=== PATIENT | female | born 1990 | race Caucasian/White ===

== ENCOUNTER 2016-09-19 10:10 | Observation (INO) ==
[2016-09-19 10:58] LABS: Bilirubin,Urine Negative (Negative); Blood,Urine Negative (Negative); Clarity,Urine Clear (Clear); Color,Urine Yellow (Yellow); Glucose,Urine (UA) Normal (Normal); Ketones,Urine Negative (Negative); Leukocyte Esterase,Urine Negative (Negative); Nitrite,Urine Negative (Negative); PH,Urine 6.5 pH Units (5.0-8.0); Protein,Urine Negative (Neg-Trace); Specific Gravity,Urine 1.005 (1.010-1.025); Urobilinogen,Urine Normal (Normal)
--- NOTE | 2016-09-19 11:10 | Discharge Summary ---
Date of Encounter: 09/19/16 Time of Encounter: 11:05 - Discharge Diagnosis (1) 26 weeks gestation of Priority: Primary Status: Acute Comments: Normal physiologic vaginal discharge. Follow-up outpatient OB scheduled appointment on Monday. - Discharge Medications Home Medications: Naproxen [Naprosyn] 500 mg PO BID PRN #30 tablet 12/18/15 [Rx] Hydrocodone/Acetaminophen [[place] 5-325 Tablet] 1 each PO Q6HR #10 tablet [Rx] Metoclopramide [Reglan] 10 mg PO Q6HR PRN #30 tablet 05/11/16 [Rx] Scopolamine Patch [Transderm-Scop] 1.5 mg TD Q72H #10 patch.td72 05/11/16 [Rx] Allergies/Adverse Reactions: Allergies Penicillins Allergy (Verified 12/21/15 14:10) Rash Data Procedures and tests throughout hospitalization: Laboratory Tests 09/19/16 10:46 Urine Color Yellow Urine Clarity Clear Urine pH 6.5 Ur Specific [place] 1.005 L Urine Protein Negative Urine Glucose (UA) Normal Urine Ketones Negative Urine Blood Negative Urine Nitrite Negative Urine Bilirubin Negative Urine Urobilinogen Normal Ur Leukocyte Esterase Negative Ur Culture Indicated? NO Labs on day of discharge: Labs from last 24 hours 09/19/16 10:46 Urine Color Yellow Urine Clarity Clear Urine pH 6.5 Ur Specific [place] 1.005 L Urine Protein Negative Urine Glucose (UA) Normal Urine Ketones Negative Urine Blood Negative Urine Nitrite Negative Urine Bilirubin Negative Urine Urobilinogen Normal Ur Leukocyte Esterase Negative Ur Culture Indicated? NO - Impressions Patient is 26 weeks and 5 days, presenting for possible rupture of membranes. She states on Monday she felt like she had a rupture of her membranes. She has an appointment with Dr. Monreal on Monday that she was planning on going to. However today during school she noticed that she had some more discharge in her underwear. It is a clear white in color. She has no urinary symptoms. She denies any vaginal itching or burning. She is concerned because she had a previous spontaneous rupture of membranes early with her prior . Nitrazine test was negative. She does have normal physiological vaginal discharge. Ferning was negative. There was no pooled fluid in her vaginal vault. Discussed with patient follow-up with Dr. Monreal on Monday and we would inform her by phone if she does have a UTI. She voiced understanding. Date of admission: 09/19/16 10:10 Primary care physician: Jaki Esquivel CNP - Patient Status Disposition: Home, Self-Care Condition: Good Overall status at discharge: patient is back to baseline - Discharge Instructions Follow Up With: Jaki Esquivel CNP [Primary Care Provider] - - Diet and Activity Activity: increase activity as tolerated Diet: advance to your usual diet Hospital Course SLEEPING [facility] Time Attestation: Total time spent providing and/or coordinating discharge services: Exam - Constitutional General appearance IM: A&O X 3, pleasant, no acute distress, answers questions appropriately - Respiratory Respiratory exam: Present: CTAB - Cardiovascular Cardiovascular exam IM: Present: RRR - GI/Abdominal GI/Abdominal exam IM: normal bowel sounds - Uterine Tone: Firm - Extremities Exam Extremities exam IM: Present: full ROM, normal capillary refill, normal inspection, radial pulses palpable and symetrical - Neurological Exam Neurological exam: alert, oriented X3 - Skin Additional comments: No rashes noted. - VTE Reasons for not Prescribing Prophylaxis: Treatment not Indicated - Low risk for VTE
== END 2016-09-19 11:16 | disposition home or self-care (01) ==
LOC: 1NENULAB
PROVIDERS: ADMIT Obstetrics & Gynecology; ATTEND Obstetrics & Gynecology

== ENCOUNTER 2016-10-17 19:39 | Observation (INO) ==
--- NOTE | 2016-10-17 21:02 | OB/GYN Progress Note ---
Date of Encounter: 10/17/16 Time of Encounter: 21:00 - Assessment and Plan (1) and not yet delivered in third trimester Current Visit: Yes Status: Acute (2) 30 weeks gestation of Current Visit: Yes Status: Acute (3) Previous section complicating Current Visit: Yes Status: Acute (4) Positive fibronectin at 22 weeks to 34 weeks gestation Current Visit: Yes Status: Acute Patient monitored for over an hour no contractions seen good movement noted. (5) Vaginal pain Current Visit: Yes Status: Acute Subjective - Subjective Interval history: Patient is a 26-year-old 2 para 1 at 30-1/7 weeks he was instructed to come to labor and delivery secondary to a positive fibronectin she had in the office today. Patient had been complaining of a lot of abdominal pressure pain with ambulation dysuria and rectal discomfort. fibronectin was obtained before leaving the office. The results were called to the physician which was positive and she wanted the patient to come in to be monitored and possible tocolytic therapy possible steroids. Patient states the baby stops moving and she just has not felt the same for the past couple days. Patient is feeling a little bit nauseated and lightheaded offered an IV the patient refused stating she does not like needles. She has Zofran at home. Patient did have a pelvic exam and the office and she was closed thickened and high. She did not want to be checked here on labor and delivery if she was not doing anything. Patient had no contractions at the over 1 hour monitoring that we performed she did have a urinalysis in the office which was also sent to the lab those results pending at this time. I did review her operative chart she did have a little microscopic hematuria but everything else was negative and no antibiotics were started. Did advise her that if she cultures had a positive an antibiotic will be called in for her. She does not complain of any vaginal discharge and has not had recent intercourse. At this point I see no indication that she is in labor and no need for steroids at this time tocolytic management. She is a previous section for breech presentation however with that she did dilate to 7 cm before they could get the section performed. Did inform her we would know if she was in labor by cervical change and nothing has been documented. Patient is wanting to go home and we will discharge home and discuss with her primary OB out of possible cervical length ultrasound for reassurance. Objective - Vital Signs Vital Signs: Intake and Output 10/17/16 10/17/16 10/17/16 07:59 15:59 23:59 Other: Weight 99 kg Patient Weight 10/17/16 23:59 Weight 99 kg - Exam FHR: category 1 FHR comments: FHT's 140's reactive contractions not seen Auscultation: bilateral: normal Abdomen: Present: normal appearance, soft, gravid Uterus: Present: firm Cervical dilation: deferred
== END 2016-10-17 21:03 | disposition home or self-care (01) ==
LOC: 1NENULAB
PROVIDERS: ADMIT Obstetrics & Gynecology; ATTEND Obstetrics & Gynecology

== ENCOUNTER → 2016-11-30 09:45 | Observation (INO) ==
--- NOTE | 2016-11-30 08:38 | OB/GYN History & Physical ---
Date of Encounter: 11/30/16 Time of Encounter: 08:32 Assessment and Plan (1) 36 weeks gestation of Current visit: Yes Status: Acute Receives care (2) Hypertension affecting in third trimester Current visit: Yes Status: Acute PIH evaluation today (3) Headache in , antepartum Current visit: Yes Status: Acute Not releived with tylenol. PIH evaluation Qualifiers: Trimester: third trimester Qualified Code(s): O26.893 - Other specified related conditions, third trimester; R51 - Headache History of Present Illness Chief complaint: and elevated BP HPI: Ms. Richardson is a 26 year old female at 36w3d to L+D for evaluation of SHANKAR, swelling, increased BP and cramping. No relief with Tylenol. ome with pulse of 119. BPs 150s/90s at hNo spotting, bleeding or LOF. +FM. Her has been complicated by a previous c/s for breech presentation, and severe sciatica third trimester Past Med Surg Social Fam HX - Past Medical History Source: patient, old records reviewed Medical history: no medical history Psychiatric history: no psych history - Past Surgical History Surgical History: - Social History Smoking Status: Never smoker Smokeless Tobacco Status: No Alcohol use: none, rarely Drug use: none - Family History Mother Adopted: No Living Status: Still Living Hx Family Cardiac Disorders: No Hx Family Respiratory Disorders: No Hx Family Cancer: No Hx Family GI Disorders: No Hx Family Endocrine Disorder: No Hx Family Neuromuscular Disorders: No Hx Family Neurologic Disorders: No Hx Family HEENT Disorders: No Hx Family Autoimmune Disorders: No Obstetrical History - Pregnancies : 2 Term: 1 Livin Medications and Allergies Ferrous Sulfate 10/17/16 [History] Tablet 10/17/16 [History] Allergies Penicillins Allergy (Verified 12/21/15 14:10) Rash Review of System OB All systems PM: reviewed and no additional remarkable complaints except as stated - Constitutional Constitutional ROS IM: headache(s), malaise, weight gain, other (Decreased appetite) - Cardiovascular Cardiovascular: rapid heart rate - Gastrointestinal Gastrointestinal: cramping - Muscloskeletal Musculoskeletal: back pain Musculoskeletal: bilateral: hip pain - Integumentary Integumentary: swelling - Neurological Nerological: headache(s) - Psychiatric Psychiatric: anxiety, change in appetite Exam - Vital Signs Vital signs: Afebrile, VSS - Constitutional Constitutional: well developed, well nourished, mild distress - HEENT HEENT: Normocephaly, Mucus Membranes Moist - Neck Neck exam: normal inspection, supple - Lungs Respiratory exam: CTAB - Cardiovascular Cardiovascular exam: RRR, tachycardia (borderlin) - Abdomen Abdomen: Present: bowel sounds normal, gravid, non tender - Extremities Extremities exam: pedal edema, warm - Vulva Vulva: bilateral: normal - Vagina Vagina: Present: normal moisture - Cervix Dilation: 1 Effacement: 50 Station: -2 - Anus/Rectum Anus/Rectum: Present: normal perianal skin Results All other labs normal. - VTE Reasons for not Prescribing Prophylaxis: Treatment not Indicated - Low risk for VTE
[2016-11-30 08:46] LABS: Basophils % 0.3 %; Eosinophils % 0.3 %; Hematocrit 33.7 % (35.3-44.9); Hemoglobin 11.5 g/dL (11.5-15.4); Immature Granulocytes % 1.1 % (0-4); Lymphocytes # 1.4 K/mcL (0.6-4.6); Lymphocytes % 12.1 %; Mean Corpuscular HGB Conc 34.1 g/dL (31.6-35.5); Mean Corpuscular Hemoglobin 30.3 pg (28.0-33.3); Mean Corpuscular Volume 88.7 fL (83.0-100.0); Mean Platelet Volume 10.5 fL (9.4-12.4); Monocytes # 0.8 K/mcL (0.0-1.3); Monocytes % 7.3 %; Neutrophils # 9.1 K/mcL (1.6-8.9); Platelet Count 200 K/mcL (140-400); Red Cell Distribution Width 12.8 % (11.5-14.5); Segmented Neutrophils % 78.9 %
[2016-11-30 08:55] LABS: Protein/Creatinine Ratio,Urine 0.16 mg/mg (0-0.20)
[2016-11-30 09:00] LABS: Alanine Aminotransferase 12 Units/L (0-55); Aspartate Amino Transferase 15 Units/L (5-34); BUN/Creatinine Ratio 15 (6-26); Blood Urea Nitrogen 8 mg/dL (7-20); Lactate Dehydrogenase 150 Units/L (159-327); Uric Acid 3.6 mg/dL (2.6-6.0); eGFR For African Americans > 60 (> 60); eGFR For Non-African Americans > 60 (> 60)
--- NOTE | 2016-11-30 09:25 | Discharge Summary ---
Outpatient Proc Discharge Plan - Plan Additional Instructions: [facility] warnings Home Medications: Ferrous Sulfate 324 mg PO DAILY 10/17/16 [History] Tablet 1 tab DAILY 10/17/16 [History]
== END | disposition home or self-care (01) ==
LOC: 1NENULAB
PROVIDERS: ADMIT Advanced Practice Midwife; ATTEND Obstetrics & Gynecology

== ENCOUNTER 2016-12-14 08:37 | Inpatient (IN) ==
[2016-12-14 09:17] LABS: Basophils % 0.3 %; Eosinophils % 0.3 %; Hemoglobin 11.6 g/dL (11.5-15.4); Immature Granulocytes % 1.2 % (0-4); Lymphocytes # 1.8 K/mcL (0.6-4.6); Lymphocytes % 14.5 %; Mean Corpuscular HGB Conc 34.1 g/dL (31.6-35.5); Mean Corpuscular Hemoglobin 29.6 pg (28.0-33.3); Mean Corpuscular Volume 86.7 fL (83.0-100.0); Mean Platelet Volume 10.6 fL (9.4-12.4); Monocytes % 7.7 %; Neutrophils # 9.6 K/mcL (1.6-8.9); Platelet Count 198 K/mcL (140-400); Red Blood Count 3.92 M/mcL (3.82-4.97); Red Cell Distribution Width 12.9 % (11.5-14.5)
[2016-12-14 09:30] LABS: Alanine Aminotransferase 12 Units/L (0-55); Aspartate Amino Transferase 18 Units/L (5-34); BUN/Creatinine Ratio 12 (6-26); Blood Urea Nitrogen 7 mg/dL (7-20); Lactate Dehydrogenase 184 Units/L (159-327); Uric Acid 3.7 mg/dL (2.6-6.0); eGFR For African Americans > 60 (> 60); eGFR For Non-African Americans > 60 (> 60)
[2016-12-14 10:23] LABS: Protein/Creatinine Ratio,Urine 0.2 mg/mg (0-0.20)
[2016-12-14] MEDS ORDERED: Ringers Solution, Lactated 1,000 ML ONE (10:30)
[2016-12-14] MEDS ORDERED: Oxytocin 20 units/ LR 1000 mL 20 UNIT/1,000 ML BAG IVC ONE ×2 (10:38→17:04)
[2016-12-14] MEDS ORDERED: Metoclopramide 10 MG/2 ML VIAL IVP ONE (10:38)
[2016-12-14] MEDS ORDERED: Famotidine 20 MG/2 ML VIAL IVP ONE (10:38)
[2016-12-14] MEDS ORDERED: Ringers Solution, Lactated 1,000 ML IVC ONE (10:38)
[2016-12-14] MEDS ORDERED: Ondansetron 4 MG/2 ML VIAL IVP ONE ×2 (10:41→14:59)
[2016-12-14] MEDS ORDERED: Ringers Solution, Lactated 1,000 ML IVC SCH (10:45)
[2016-12-14] MEDS ORDERED: Ondansetron 4 MG/2 ML VIAL ONE (10:48)
--- NOTE | 2016-12-14 12:08 | OB/GYN History & Physical ---
Date of Encounter: 12/14/16 Time of Encounter: 12:06 Assessment and Plan (1) 38 weeks gestation of Current visit: Yes Status: Acute (2) Nausea and vomiting during Current visit: Yes Status: Acute IV hydration, Zofran (3) Oligohydramnios in castillo in third trimester Current visit: Yes Status: Acute Patient is 38 weeks and will need delivery (4) Edema of lower extremity in third trimester, antepartum Current visit: Yes Status: Acute (5) Previous section complicating Current visit: No Status: Acute Repeat planned, currently jonathan with cervical change documented History of Present Illness Chief complaint: Decreased movement, headache, BV, N+V, 38 weeks HPI: Ms. Richardson is a 26 year old female with an EDC of 12/25/16 by LMP and confirmed by a 9 week ultrasound. She has a scheduled repeat on 12/21 and presents today with complaints of decreased movement since yesterday evening, nausea or vomiting this morning and woke up with headache, seeing spots. She denies midepigastric pain but has right upper quadrant discomfort and burning sensation. She reports irregular contractions and felt like she was wetter than usual when she woke up. She has had increasing swelling in her lower extremities and feet to the point of discomfort and unable to use her normal shoes. She has had to leave her rings off. Her has been complicated by bilateral sciatica, anemia and anxiety. Upon arrival the patient was tachycardic. She appeared anxious and since arrival has had 2 episodes of emesis. The patient has had plans for tubal ligation at time of her but is now not sure she really wants this done and so is now planning on not having a tubal ligation. Past Med Surg Social Fam HX - Past Medical History Attestation: Yes The following information was validated with the patient. Source: patient, old records reviewed Medical history: GERD Psychiatric history: anxiety - Past Surgical History Surgical History: - Social History Smoking Status: Never smoker Smokeless Tobacco Status: No Alcohol use: none, rarely Drug use: none Occupational status: employed Current living situation: Home - Independent Activity Level: Independent ambulation Recent Out of Country Travel Within the Last 8 Weeks: No Exposure or Possible Exposure to Illness During Travel: No - Family History Mother Adopted: No Living Status: Still Living Hx Family Cardiac Disorders: No Hx Family Respiratory Disorders: No Hx Family Cancer: No Hx Family GI Disorders: No Hx Family Genitourinary Disorders: No Hx Family Endocrine Disorder: No Hx Family Musculoskeletal Disorders: No Hx Family Neuromuscular Disorders: No Hx Family Neurologic Disorders: No Hx Family HEENT Disorders: No Hx Family Autoimmune Disorders: No Hx Family Reproductive Disorders: No Hx Family Psychosocial Disorders: No Hx Family Medical Disorders: No Obstetrical History - Pregnancies : 2 Term: 1 Livin Medications and Allergies Ferrous Sulfate 324 mg PO DAILY 10/17/16 [History] Tablet 1 tab DAILY 10/17/16 [History] Allergies Penicillins Allergy (Verified 12/21/15 14:10) Rash Review of System OB All systems PM: reviewed and no additional remarkable complaints except as stated - Constitutional Constitutional ROS IM: as per HPI, fatigue, headache(s), weight gain - Eyes Eyes: bilateral: blurred vision - Cardiovascular Cardiovascular: edema, leg edema, pedal edema, rapid heart rate - Gastrointestinal Gastrointestinal: cramping, heartburn, nausea, vomiting - Genitourinary Genitourinary: vaginal discharge - Menstruation Menstruation: amenorrhea - Muscloskeletal Musculoskeletal: bilateral: ankle swelling, foot swelling, hand swelling - Neurological Nerological: as per HPI, headache(s), other visual disturbances - Psychiatric Psychiatric: as per HPI, abnormal sleep pattern, anxiety - Endocrine Endocrine: flushing Exam - Vital Signs Vital signs: Afeb, bps 120-140s/ 70-80s, [id number] - Constitutional Constitutional: well developed, well nourished, moderate distress - HEENT HEENT: Normocephaly, Mucus Membranes Moist - Neck Neck exam: normal inspection, supple - Lungs Respiratory exam: CTAB - Cardiovascular Cardiovascular exam: tachycardia - Abdomen Abdomen: Present: bowel sounds normal, gravid Abdomen detail: right upper quadrant: tenderness (No peritoneal signs) - Extremities Extremities exam: pedal edema, warm Deep Tendon Reflex Grade: 3+ Normal But Brisk - Vulva Vulva: bilateral: normal - Vagina Vagina: Present: normal moisture (NTZ negative) - Cervix Dilation: 1 Effacement: 70 Station: -1 - Anus/Rectum Anus/Rectum: Present: normal perianal skin - Comments Comments: Bedside ultrasound reveals a active vertex fetus with grade 3 placenta and JUWAN of 5.1 Results Result Diagrams: 12/14/16 09:05 12/14/16 09:05 Abnormal lab results WBC 12.6 K/mcL (4.3-11.1) H 12/14/16 09:05 Hct 34.0 % (35.3-44.9) L 12/14/16 09:05 Neutrophils # 9.6 K/mcL (1.6-8.9) H 12/14/16 09:05 Urine Total Protein 27 mg/dL (1-14) H 12/14/16 09:56 All other labs normal. - VTE Documentation of Mechanical Device: Intermittent pneumatic compression device
[2016-12-14] MEDS ORDERED: Clindamycin 900 MG/50 ML 900 MG/50 ML IV.SOLN IVPB ONE (13:18)
--- NOTE | 2016-12-14 13:18 | Anesthesia Evaluation PreOp ---
Date of Encounter: 12/14/16 Time of Encounter: 13:16 - Past History Planned Operation: Repeat Cardiac History: Denies any Significant Hx Pulmonary History: Denies Any Significant HX HYDRAULIC PRESS TENDER History: Denies Any Significant HX, Other ("High Anxiety" previously maintained on Prozac. Sciatica, Lumbago) Other Medical History: Denies Any Significant HX, GERD (maintained on Zantac) Anesthesia History: No Prior Anesthetic Complications, Past Anesthesia (C- section 2013,) Alcohol Use: none, rarely Drug use: none Medications and Allergies Ferrous Sulfate 324 mg PO DAILY 10/17/16 [History] Tablet 1 tab DAILY 10/17/16 [History] Allergies Penicillins Allergy (Verified 12/21/15 14:10) Rash - Meds/Allergy Pre-op Review Medications Reviewed: Yes Allergies Reviewed: Yes Beta Blockers on Current Med List: No Anesthesia Results - Labs 12/14/16 09:05 12/14/16 09:05 Laboratory Tests 12/14/16 12/14/16 09:05 09:05 WBC 12.6 H Hgb 11.6 Hct 34.0 L Plt Count 198 BUN 7 Creatinine 0.60 Est GFR (Non-Af Amer) > 60 Anesthesia Exam Intake and Output 12/13/16 12/14/16 12/14/16 23:59 07:59 15:59 Other: Weight 107.1 kg Patient Weight 12/14/16 23:59 Weight 107.1 kg Height: 5' Weight: 236# BMI = 46 NPO (# of Hours): MNOc - HEENT Pupil (Motor): Pupils equal, EOMI Mallampati: II Teeth: Normal Oral Opening: Greater than 3 - HYDRAULIC PRESS TENDER LOC: Oriented HYDRAULIC PRESS TENDER Motor: Normal RUE, Normal LUE, Normal RLE, Normal LLE, Normal Face HYDRAULIC PRESS TENDER Sensory: Normal: RUE, LUE, RLE, LLE, Face - Cardiac Rhythm: Regular Murmur: None - Pulmonary Breath Sounds: bilateral Clear Respiratory Effort: Symmetrical Anesthesia Assess/Plan ASA Score: 2 Modified Stephen Scale for Level of Consciousness: Cooperative, oriented, and tranquil Anesthetic Plan: Regional Monitoring Plan: Standard Monitors Recovery Plan: PACU Anes Supervising Prov Stmt: Pt seen/evaluated, R&B discussed, questions answered and consent obtained. Keith Monsalve MD
[2016-12-14] MEDS ORDERED: EPHEDrine 50 MG/ML VIAL ONE (13:24)
[2016-12-14] MEDS ORDERED: *HR* Oxytocin 10 UNIT/ML VIAL IM ONE (13:26)
[2016-12-14] MEDS ORDERED: *HR* Morphine 2 MG/ML SYRINGE IVP PRN (13:39)
[2016-12-14] MEDS ORDERED: *HR* OxyCODONE/APAP 5/325 TABLET PO PRN (13:39)
[2016-12-14] MEDS ORDERED: Naloxone 0.4 MG/ML INJ IVP PRN (13:39)
[2016-12-14] MEDS ORDERED: Ibuprofen 400 MG TABLET PO PRN (13:39)
[2016-12-14] MEDS ORDERED: *HR* HYDROmorphone (PF) 1 MG/ML SYRINGE IVP PRN ×2 (13:39→14:59)
[2016-12-14] MEDS ORDERED: *HR* Morphine Sulfate/PF 5 MG/10 ML AMPUL ONE (14:06)
[2016-12-14] MEDS ORDERED: *HR* Promethazine 25 MG/ML VIAL IVP PRN (14:59)
--- NOTE | 2016-12-14 16:52 | OB/GYN Procedure Note ---
Section - Date of procedure: 12/14/16 Preop diagnosis: desires repeat (jonathan with cervical change), other (Oligohydramnios) Post-op diagnosis: same Procedure: section, repeat low transverse Surgeon: Melvina Monreal Estimated blood loss (cc): 500 Anesthesiologist: Katharine England [facility] Worker: Tyson Valenzuela Anesthesia Type: Spinal section complications: none Disposition: L&D Recovery Room Specimens: Placenta, Cord segment, Cord blood - (s) A Delivery Date: 12/14/16 Infant Delivery Time: 14:51 Presentation: vertex Position: FLORIAN Route of delivery: other Gender: Female Viability: Viable Pounds: 8 Ounces: 7 Gram Weight: 3.83 kg at 1 minute: 9 at 5 minutes: 9 Shoulder Dystocia: not encountered Specimens collected: cord blood Placenta: spontaneous, uterine exploration Cord: 3 umbilical vessels, other (Arm around shoulder) - Narrative Narrative: The patient was taken to the operating room and given spinal anesthesia adequate for abdominal and pelvic surgery. She was prepped and draped in the usual sterile fashion. Timeout was completed. A Pfannenstiel skin incision was made above and below the previous scar and the cicatrix was excised and discarded. The subcutaneous tissue was sharply dissected down to the fascia. The fascia was incised in the midline and extended bilaterally with Alvarez scissors.. 2 straight [place] clamps were placed on the inferior fascial edge and the fascia was bluntly and sharply dissected away from the rectus muscles. This was repeated superiorly. The rectus muscles were bluntly bissected. Peritoneum was sharply entered and then extended superiorly and inferiorly confirming there were no anterior adhesions. Just above the incision there was a band of omental tissue adhered anteriorly. This was released with the Bovie. Good hemostasis assured. Bladder blade was placed to protect the bladder. There appeared to be a 2 cm window ballooning in the midline in the lower uterine segment which was still intact. Vesicouterine peritoneum was incised and reflected inferiorly and the bladder blade was replaced to protect the bladder. A low transverse incision was then made through the lower uterine segment down to the amnion. This was bluntly extended bilaterally and extended in a U fashion with bandage scissors.. The amnion was bluntly entered. Clear fluid was seen. This was followed by the vertex delivery of a viable and vigorous female infant weighing 8#7 oz with Apgars of 9 at 1 minute and 9 at 5 minutes. was placed on the maternal abdomen. The cord was clamped and cut after a delay. Infant was handed to the nursery care team. Cord blood was obtained. The placenta was delivered spontaneous and intact. The uterine cavity was digitally palpated and wiped clean with a moist lap sponge. There were no placental remnants identified. A ring forcep was used to make sure the cervix was dilated and then this was discarded off the field. Clamps were placed on the uterine angles and the uterine incision was closed using 0 Vicryl suture in a running, locking fashion. A second imbricating layer completed the uterine closure with 0 Vicryl suture. A midline [id number] suture with 0 Vicryl suture was placed for hemostasis. The uterus was then examined and noted to be hemostatic. The pelvis was then irrigated with a copious amount of sterile water. Again, good hemostasis was identified. Tubes and ovaries were inspected and noted to be grossly normal. The peritoneal edges and rectus muscles were then examined and hemostasis achieved. The fascia was then closed using 0 PDS loop in a running nonlocking fashion. Subcutaneous tissue was irrigated with sterile water, good hemostasis was achieved. This layer was then reapproximated with 3-0 Monocryl in a running nonlocking fashion. The skin was then closed using a 4-0 Monocryl in a running subcuticular fashion. The incision was then reinforced with benzoin and Steri-Strips. Good hemostasis was noted. Estimated blood loss was 500cc. The Jaffe was noted to be draining clear yellow urine at the end of the procedure. All sponge and instrument counts are correct at the end of the procedure. The patient was taken to the recovery room in stable condition.
[2016-12-14] MEDS ORDERED: Metoclopramide 10 MG/2 ML VIAL IVP PRN (18:14)
[2016-12-14] MEDS ORDERED: Rho Immune Globulin 1,500 UNIT SYRINGE IM ONE (18:14)
[2016-12-14] MEDS ORDERED: Ondansetron 4 MG/2 ML VIAL IVP PRN (18:14)
[2016-12-14] MEDS ORDERED: Sennosides 8.6 MG TABLET PO PRN (18:14)
[2016-12-14] MEDS ORDERED: Oxytocin 20 units/ LR 1000 mL 20 UNIT/1,000 ML BAG IVC SCH ×2 (18:14)
[2016-12-14] MEDS ORDERED: Simethicone 80 MG TAB.CHEW PO PRN (18:14)
--- NOTE | 2016-12-14 18:40 | Anesthesia Evaluation Post Op ---
Date of Encounter: 12/14/16 Time of Encounter: 18:00 - Vital Signs Vital Signs: 3 Vital Signs Time 1800 BP 119/71 Pulse 92 Resp 16 O2 Sat 99 RA - Lungs Lungs: Clear Ascult./Percussion - Airway Airway: Non-obstructed - Cardiovascular Regular Rate - Mental Status Mental Status: Alert & Oriented, Answers Appropriately - Pain Pain Scale: 2 Pain Scale used: Numeric (1 - 10) - Nausea Vomiting Nausea Vomiting: Not Present - Hydration Hydration: NPO, Jaffe catheter Notes: 12/14/16 18:39 patient able to move legs blaterally - Discharge PostOp Status: Transfer Patient to floor
[2016-12-14] MEDS: Ibuprofen 600 MG TABLET PO PRN (21:29)
[2016-12-15 06:32] LABS: Basophils % 0.3 %; Eosinophils % 0.3 %; Hematocrit 34.1 % (35.3-44.9); Hemoglobin 11.5 g/dL (11.5-15.4); Lymphocytes # 1.1 K/mcL (0.6-4.6); Lymphocytes % 8.3 %; Mean Corpuscular HGB Conc 33.7 g/dL (31.6-35.5); Mean Platelet Volume 11.1 fL (9.4-12.4); Monocytes # 1.1 K/mcL (0.0-1.3); Monocytes % 7.7 %; Neutrophils # 11.2 K/mcL (1.6-8.9); Platelet Count 188 K/mcL (140-400); Red Blood Count 3.83 M/mcL (3.82-4.97); Red Cell Distribution Width 12.9 % (11.5-14.5); Segmented Neutrophils % 82.4 %
[2016-12-15] MEDS: Ibuprofen 600 MG TABLET PO PRN ×3 (06:35→20:42)
[2016-12-15] MEDS ORDERED: *HR* Phenylephrine 10 MG/ML VIAL ONE (06:53)
--- NOTE | 2016-12-15 08:52 | OB/GYN Progress Note ---
Date of Encounter: 12/15/16 Time of Encounter: 08:50 - Assessment and Plan (1) delivery delivered Current Visit: Yes Status: Acute Stable in . Pain well managed on po pain medication. No other complaints noted. Anticipate DC tomorrow. Subjective - Subjective Patient reports: appetite normal, voiding normally, pain well controlled, ambulating normally [place]: doing well Objective - Vital Signs Latest vital signs: Vital Signs Temp Pulse Resp BP Pulse Ox 12/15/16 04:05 20 12/15/16 03:55 97.9 F 92 20 102/63 97 12/15/16 00:00 97.8 F 90 16 105/59 97 12/14/16 21:15 98.3 F 92 14 109/63 98 12/14/16 20:15 97.8 F 92 16 109/65 98 12/14/16 19:20 12 12/14/16 19:17 98.0 F 94 12 114/63 97 12/14/16 18:45 98.0 F 94 12 114/63 100 12/14/16 18:15 97.9 F 81 18 113/66 100 Intake and Output 12/14/16 12/15/16 12/15/16 23:59 07:59 15:59 Intake Total 800 / 800 Output Total 825 / 825 925 / 925 Balance -825 / -825 -125 / -125 Intake: Oral 800 / 800 Output: Urine 600 / 600 Catheter 825 / 825 325 / 325 Other: Weight 103.328 kg Patient Weight 12/15/16 23:59 Weight 103.328 kg - Exam Lungs: bilateral: normal Chest: Normal S1, Normal S2 Extremities: Present: normal Abdomen: Present: normal appearance, soft Incision: Present: dressed Uterus: Present: normal - Labs Labs: Laboratory Results - last 24 hr 12/14/16 12/14/16 12/14/16 09:05 09:05 09:56 WBC 12.6 H RBC 3.92 Hgb 11.6 Hct 34.0 L MCV 86.7 MCH 29.6 MCHC 34.1 RDW 12.9 Plt Count 198 MPV 10.6 Immature Gran % 1.2 Seg Neutrophils % 76.0 Lymphocytes % 14.5 Monocytes % 7.7 Eosinophils % 0.3 Basophils % 0.3 Neutrophils # 9.6 H Lymphocytes # 1.8 Monocytes # 1.0 Eosinophils # 0.0 Basophils # 0.0 BUN 7 Creatinine 0.60 Est GFR ( Amer) > 60 Est GFR (Non-Af Amer) > 60 BUN/Creatinine Ratio 12 Uric Acid 3.7 AST 18 ALT 12 Lactate Dehydrogenase 184 Urine Creatinine 136 Protein/Creatinin Ratio 0.20 Urine Total Protein 27 H 12/15/16 05:28 WBC 13.6 H RBC 3.83 Hgb 11.5 Hct 34.1 L MCV 89.0 MCH 30.0 MCHC 33.7 RDW 12.9 Plt Count 188 MPV 11.1 Immature Gran % 1.0 Seg Neutrophils % 82.4 Lymphocytes % 8.3 Monocytes % 7.7 Eosinophils % 0.3 Basophils % 0.3 Neutrophils # 11.2 H Lymphocytes # 1.1 Monocytes # 1.1 Eosinophils # 0.0 Basophils # 0.0 BUN Creatinine Est GFR ( Amer) Est GFR (Non-Af Amer) BUN/Creatinine Ratio Uric Acid AST ALT Lactate Dehydrogenase Urine Creatinine Protein/Creatinin Ratio Urine Total Protein
[2016-12-15] MEDS: *HR* OxyCODONE/APAP 5/325 TABLET PO PRN ×2 (09:32→18:17)
[2016-12-15] MEDS: Prenatal Vit/FA 1 EACH TABLET PO SCH (09:33)
[2016-12-16] MEDS: *HR* OxyCODONE/APAP 5/325 TABLET PO PRN (00:55)
[2016-12-16] MEDS: Ibuprofen 600 MG TABLET PO PRN (09:01)
[2016-12-16] MEDS: Prenatal Vit/FA 1 EACH TABLET PO SCH (09:01)
[2016-12-16 09:50] VITALS: BP 115/76
[2016-12-16] MEDS ORDERED: Benzocaine/Menthol 56 GM AEROSOL SPRAY TP PRN (10:22)
[2016-12-16] MEDS ORDERED: Benzocaine/Menthol 56 GM AEROSOL SPRAY TP ONE (10:23)
--- NOTE | 2016-12-16 10:32 | Discharge Summary ---
Date of Encounter: 12/16/16 Time of Encounter: 10:29 - Discharge Diagnosis (1) delivery delivered Priority: Primary Status: Acute Comments: Pt meeting post-op milestones. (2) Hypertension affecting in third trimester Priority: Secondary Status: Acute Comments: Normotensive . (3) Mother currently breast-feeding Priority: Secondary Status: Acute - Discharge Medications Prescriptions: OxyCODONE/APAP 5/325 [Percocet 5/325 MG] 1 each PO Q4HR PRN #30 tablet PRN Reason: Moderate pain 4-6 Ibuprofen [Motrin] 600 mg PO Q6HR PRN #60 tablet PRN Reason: Cramping Docusate [Colace] 100 mg PO BID #60 capsule Home Medications: Benzocaine/Menthol Coker [Dermoplast Coker] 1 appl TP QID PRN #0 aerosol [Rx] Docusate [Colace] 100 mg PO BID #60 capsule 12/16/16 [Rx] Ibuprofen [Motrin] 600 mg PO Q6HR PRN #60 tablet 12/16/16 [Rx] OxyCODONE/APAP 5/325 [Percocet 5/325 MG] 1 each PO Q4HR PRN #30 tablet 12/16/16 [Rx] Simethicone [Gas-X] 80 mg PO TID PRN #0 tab.chew 12/16/16 [Rx] Allergies/Adverse Reactions: Allergies Penicillins Allergy (Verified 12/21/15 14:10) Rash Data Procedures and tests throughout hospitalization: Laboratory Tests 12/14/16 12/14/16 12/14/16 09:05 09:05 09:56 WBC 12.6 H RBC 3.92 Hgb 11.6 Hct 34.0 L MCV 86.7 MCH 29.6 MCHC 34.1 RDW 12.9 Plt Count 198 MPV 10.6 Immature Gran % 1.2 Seg Neutrophils % 76.0 Lymphocytes % 14.5 Monocytes % 7.7 Eosinophils % 0.3 Basophils % 0.3 Neutrophils # 9.6 H Lymphocytes # 1.8 Monocytes # 1.0 Eosinophils # 0.0 Basophils # 0.0 BUN 7 Creatinine 0.60 Est GFR ( Amer) > 60 Est GFR (Non-Af Amer) > 60 BUN/Creatinine Ratio 12 Uric Acid 3.7 AST 18 ALT 12 Lactate Dehydrogenase 184 Urine Creatinine 136 Protein/Creatinin Ratio 0.20 Urine Total Protein 27 H 12/15/16 05:28 WBC 13.6 H RBC 3.83 Hgb 11.5 Hct 34.1 L MCV 89.0 MCH 30.0 MCHC 33.7 RDW 12.9 Plt Count 188 MPV 11.1 Immature Gran % 1.0 Seg Neutrophils % 82.4 Lymphocytes % 8.3 Monocytes % 7.7 Eosinophils % 0.3 Basophils % 0.3 Neutrophils # 11.2 H Lymphocytes # 1.1 Monocytes # 1.1 Eosinophils # 0.0 Basophils # 0.0 BUN Creatinine Est GFR ( Amer) Est GFR (Non-Af Amer) BUN/Creatinine Ratio Uric Acid AST ALT Lactate Dehydrogenase Urine Creatinine Protein/Creatinin Ratio Urine Total Protein Date of admission: 12/14/16 08:37 Primary care physician: Jennifer Lacey CNP Discharging clinician: Maria D Murguia Anticipated date of discharge: 12/16/16 - Patient Status Disposition: Home, Self-Care Condition: Good Functional capacity at discharge: independent ambulation Overall status at discharge: patient is progressing back to baseline - Discharge Instructions Follow Up With: Jennifer Lacey CNP [Primary Care Provider] - Melvina Monreal MD [Partnered Physician] - - Diet and Activity Activity: increase activity as tolerated Diet: regular diet Hospital Course Reason for admission: active labor Delivery: section Episiotomy: none Laceration: none Other procedures: none complications: none Discharge diagnosis: IUP at term delivered [place] baby: female Hospital course: - Date of procedure: 12/14/16 Preop diagnosis: desires repeat (jonathan with cervical change), other (Oligohydramnios) Post-op diagnosis: same Procedure: section, repeat low transverse Surgeon: Melvina Monreal Estimated blood loss (cc): 500 Anesthesiologist: Katharine England Byproducts Pump Operator: Tyson Valenzuela Anesthesia Type: Spinal section complications: none Disposition: L&D Recovery Room Specimens: Placenta, Cord segment, Cord blood - (s) Infant A Infant Delivery Date: 12/14/16 Delivery Time: 14:51 Presentation: vertex Position: FLORIAN Route of delivery: other Gender: Female Viability: Viable Pounds: 8 Ounces: 7 Gram Weight: 3.83 kg at 1 minute: 9 at 5 minutes: 9 Shoulder Dystocia: not encountered Specimens collected: cord blood Placenta: spontaneous, uterine exploration Cord: 3 umbilical vessels, other (Arm around shoulder) Time Attestation: Total time spent providing and/or coordinating discharge services: Time Spent: Less than 30 minutes - VTE Reasons for not Prescribing Prophylaxis: Treatment not Indicated - Low risk for VTE Documentation of Mechanical Device: Intermittent pneumatic compression device Exam - Constitutional Vitals: Temp Pulse Resp BP Pulse Ox 98.0 F 95 16 115/76 99 12/16/16 09:00 12/16/16 09:00 12/16/16 09:00 12/16/16 09:00 12/16/16 09:00 General appearance IM: A&O X 3, pleasant, no acute distress - Respiratory Respiratory exam: Present: CTAB - Cardiovascular Cardiovascular exam IM: Present: RRR, +S1, +S2 - GI/Abdominal GI/Abdominal exam IM: soft, no peritoneal signs Incision: dry, intact Additional comments: scant amount old drainage noted on right side of incision. Incision dry and intact otherwise. Steri-strips intact. No s/sx infection - Uterine Tone: Firm Uterus Position: 2 Fingers Below Umbilicus - Extremities Exam Extremities exam IM: Present: pedal edema (mild bilaterally) - Neurological Exam Neurological exam: normal gait, oriented X3 - Psychiatric Additional comments: reports good mood
== END 2016-12-16 11:30 | disposition home or self-care (01) | DRG 765 ==
LOC: 1NENULAB → OBSVTOIN 08:37 → 1NENUOBS 18:13
PROVIDERS: ADMIT Obstetrics & Gynecology; ATTEND Obstetrics & Gynecology